=== PATIENT | female | born 1975 | race African-American/Black ===

== ENCOUNTER → 2017-08-18 | Outpatient (CLI) | payer OTHER ==
--- NOTE | 2017-08-18 10:28 | REP ---
CHEST: Two views. There is no evidence of acute infiltrate. No pleural effusion is seen. The heart is normal in size. The mediastinal silhouette is unremarkable. The visualized osseous structures are intact. IMPRESSION: No acute pulmonary disease. Signed by Filemon Mckenzie MD 08/18/2017 04:58 P
== END ==
LOC: M SMT 09:45
PROVIDERS: ATTEND Nurse Practitioner Adult Health
DX: J45.40 Moderate persistent asthma, uncomplicated (principal)

== ENCOUNTER → 2021-12-14 | Outpatient (CLI) | payer OTHER | LOC: M WHC 09:04 | PROVIDERS: ATTEND Physician Assistant | DX: E55.9 Vitamin D deficiency, unspecified (principal) ==

== ENCOUNTER 2022-11-28 16:36 | Emergency (ER) | payer OTHER ==
[~2022-11-28] VITALS: Ht 152.4 cm; Wt 82.7 kg
[2022-11-28] MEDS ORDERED: CYCL-707 (17:09)
[2022-11-28] MEDS ORDERED: DULO1CAP5 (17:09)
[2022-11-28] MEDS ORDERED: LISI2.5T9 (17:09)
[2022-11-28] MEDS ORDERED: MONT10TA97 (17:09)
[2022-11-28] MEDS ORDERED: ALBU8.5H (17:09)
[2022-11-28] MEDS ORDERED: AMLO1TAB24 (17:09)
[2022-11-28] MEDS ORDERED: SUMA5SPR3 (17:09)
[2022-11-29 01:00] VITALS: BP 120/70
== END 2022-11-29 03:15 | disposition left against medical advice (07) ==
LOC: M ED 16:36
DX: Z53.21 Procedure and treatment not carried out due to patient leaving prior to being seen by health care provider (principal)